=== PATIENT | female | born 1995 | race American Indian/Alaskan Native ===

== ENCOUNTER 2018-12-23 20:08 | Outpatient (CLI) | payer MEDICAID ==
[2018-12-23 20:44] VITALS: BP 109/67
--- NOTE | 2018-12-23 22:38 | Ultrasound Report ---
FINAL REPORT PROCEDURE: US OB LIMITED TECHNIQUE: Real-time limited sonographic examination was performed for evaluation of amniotic fluid volume for each fetus with image documentation (1 or more fetuses). CPT 71486 HISTORY: EMILIE COMPARISON: No prior studies are available for comparison. FINDINGS: A single intrauterine gestation is identified with heart rate of 144 beats per minute. Amniotic fluid index is 10.4 centimeters which is within normal limits. IMPRESSION: Amniotic fluid index is 10.4 centimeters
[2018-12-24 00:13] LABS: Bacteria,Urine 4+ /HPF (Negative); Bilirubin,Urine NEG (Negative); Blood,Urine NEG (Negative); Color,Urine Yellow (Yellow); Mucus,Urine FEW /HPF; Urobilinogen,Urine < 2.0 mg/dL (<2.0)
== END 2018-12-23 22:40 | disposition home or self-care (01) ==
LOC: TRG 20:08
PROVIDERS: ATTEND Obstetrics & Gynecology
DX: O88.113 Amniotic fluid embolism in pregnancy, third trimester (principal); O99.513 Diseases of the respiratory system complicating pregnancy, third trimester; J45.909 Unspecified asthma, uncomplicated; Z3A.36 36 weeks gestation of pregnancy
CPT/HCPCS: 76815; 81001

== ENCOUNTER 2019-01-09 11:38 | Outpatient (CLI) | payer MEDICAID | END 2019-01-09 14:28 | disposition home or self-care (01) | LOC: TRG 11:38 | CPT/HCPCS: 59025 ==

== ENCOUNTER 2019-01-09 22:52 | Inpatient (IN) | payer MEDICAID ==
[2019-01-10] MEDS ORDERED: AMPICILLIN/NS 2 GM/100 ML 2 GM/100 ML BAG IV ONE (00:33)
[2019-01-10] MEDS ORDERED: SUBLIMAZE IV PRN (00:33)
[2019-01-10] MEDS ORDERED: MINERAL OIL PO PRN (00:33)
[2019-01-10] MEDS ORDERED: XYLOCAINE 2% INFILTRATI ONE ×2 (00:33→04:05)
[2019-01-10] MEDS ORDERED: BRETHINE IVP PRN (00:33)
[2019-01-10] MEDS ORDERED: BRETHINE SUB-Q PRN (00:33)
[2019-01-10] MEDS ORDERED: LACTATED RINGERS 1,000 ML IV SCH (01:00)
[2019-01-10] MEDS ORDERED: PITOCin/NS 20 UNIT/1000ML DRIP 20 UNITS/1,000 ML BAG IV SCH ×2 (01:00→05:00)
[2019-01-10] MEDS ORDERED: ZOFRAN IV ONE (01:08)
[2019-01-10 01:18] LABS: Hematocrit 36.7 % (30.3-42.9); Hemoglobin 12.5 gm/dl (10.1-14.3); Mean Corpuscular HGB Conc 34 % (30-34); Mean Corpuscular Volume 99 fl (79-97); Platelet Count 215 K/mm3 (140-440); Red Blood Count 3.69 M/mm3 (3.65-5.03); Red Cell Distribution Width 14.2 % (13.2-15.2)
[2019-01-10] MEDS ORDERED: PITOCin/NS 30 UNIT/500ML 30,000 MILLIUNITS/500 ML BAG IV ONE (03:27)
--- NOTE | 2019-01-10 04:31 | History and Physical Report ---
History of Present Illness Date of examination: 01/10/19 Date of admission: 01/10/19 01:51 Chief complaint: contractions History of present illness: This is a 23 yo at 38 weeks here for contractions noted to be 7cm. She is a patient of [facility]. Unremarkable hospital course Past History Past Medical History: no pertinent history Past Surgical History: no surgical history Family/Genetic History: none Social history: single. denies: smoking, alcohol abuse, prescription drug abuse - Obstetrical History Expected Date of Delivery: 01/20/19 Actual Gestation: 38 Week(s) 4 Day(s) : 1 Para: 0 Hx # Term Pregnancies: 0 Number of Pregnancies: 0 Spontaneous Abortions: 0 Induced : 0 Number of Living Children: 0 Medications and Allergies Allergies Allergy/AdvReac Type Severity Reaction Status Date / Time Latex, Natural Rubber AdvReac Severe Itching Verified 01/09/19 11:57 Active Meds: Active Medications Ephedrine Sulfate (Ephedrine Sulfate) 10 mg IV Q2M PRN PRN Reason: Hypotension Fentanyl (Sublimaze) 100 mcg IV Q2H PRN PRN Reason: Labor Pain Last Admin: 01/10/19 01:00 Dose: 100 mcg Documented by: Ampicillin Sodium (Ampicillin/Ns 1 Gm/50 Ml) 1 gm in 50 mls @ 100 mls/hr IV Q4HR PAIGE; Protocol Lactated Ringer's (Lactated Ringers) 1,000 mls @ 125 mls/hr IV DIRECT PAIGE Last Admin: 01/10/19 01:00 Dose: 125 mls/hr Documented by: Oxytocin/Sodium Chloride (Pitocin/Ns 20 Unit/1000ml Drip) 20 units in 1,000 mls @ 125 mls/hr IV DIRECT PAIGE Mineral Oil (Mineral Oil) 30 ml PO QHS PRN PRN Reason: Constipation Terbutaline Sulfate (Brethine) 0.25 mg SUB-Q ONCE PRN PRN Reason: Hyperstimulation/Hypertonicity Terbutaline Sulfate (Brethine) 0.25 mg IVP ONCE PRN PRN Reason: Hyperstimulation/Hypertonicity Review of Systems All systems: negative Genitourinary: contractions - Vital Signs Vital signs: Vital Signs Pulse BP 82 125/84 01/09/19 23:58 01/09/19 23:58 Temp Pulse Resp BP Pulse Ox 98.5 F 92 H 113/62 01/10/19 00:24 01/10/19 04:18 01/10/19 04:18 - Physical Exam Breasts: Positive: normal Cardiovascular: Regular rate, Normal S1 Lungs: Positive: Clear to auscultation, Normal air movement Abdomen: Positive: normal appearance, soft, normal bowel sounds. Negative: distention, tenderness, guarding Genitourinary (Female): Positive: normal external genitalia, normal perenium Uterus: Positive: normal size, normal contour Anus/Rectum: Positive: normal perianal skin Extremities: Positive: normal Deep Tendon Reflex Grade: Normal +2 - Obstetrical FHR: category 1 Cervical Dilatation: 8 Cervical Effacement Percentage: 90 station: -3 Uterine Contraction Pattern: Regular Uterine Tone Measurement Phase: Contraction Uterine Contraction Intensity: Strong/Firm Results Result Diagrams: 01/10/19 00:55 Abnormal lab results 01/10/19 Range/Units 00:55 MCV 99 H (79-97) fl MCH 34 H (28-32) pg All other labs normal. Assessment and Plan A/P IUP 38 weeks Active labor GBS unknown - amp intiated IV pain meds expect vaginal delivery
[2019-01-10] MEDS ORDERED: AMPICILLIN/NS 1 GM/50 ML 1 GM/50 ML BAG IV SCH (04:33)
--- NOTE | 2019-01-10 04:38 | Procedure Note ---
OB Delivery Note - Delivery Date of Delivery: 01/10/19 Surgeon: PARAS COSTA Estimated blood loss: 300cc - Vaginal Delivery presentation: vertex Delivery position: OA Delivery augmentation: pitocin Delivery monitor: external FHT, external uterine Route of delivery: Delivery placenta: spontaneous Delivery cord: nuchal cord, 3 umbilical vessels Episiotomy: none Delivery laceration: other (Bilateral periurethral) Anesthesia: local Delivery comments: Patient noted to be c/c +2 and commenced top pushing a viable male infant at 0355 . The baby delivered head and shoulders easily. Prior to delivery of head a losse nuchal cord reduced. The naosphaynx and oropharynx suctioned. The cord was clamped and cut and placed on mom chest. The placenta delivered at 0401 intact. Survey of perineum revealed b/l periurethral lacs repaired with 3-0 vicryl. Excellent hemostasis. Mom and baby bonding. EBL 300 cc. - Infant A at 1 minute: 8 at 5 minutes: 9 Gender: Male (7 pounds 11 oz)
[2019-01-10] MEDS ORDERED: PHENERGAN PO PRN (04:55)
[2019-01-10] MEDS ORDERED: TORADOL IV PRN (04:55)
[2019-01-10] MEDS ORDERED: NORCO 5/325 PO PRN (04:55)
[2019-01-10] MEDS ORDERED: DULCOLAX PR PRN (04:55)
[2019-01-10] MEDS ORDERED: PHENERGAN PR PRN (04:55)
[2019-01-10] MEDS ORDERED: ZOFRAN IV PRN (04:55)
[2019-01-10] MEDS ORDERED: BENADRYL PO PRN (04:55)
[2019-01-10] MEDS ORDERED: MILK OF MAGNESIA PO PRN (04:55)
[2019-01-10] MEDS ORDERED: TYLENOL PO PRN (04:55)
[2019-01-10] MEDS ORDERED: SODIUM CHLORIDE FLUSH SYRINGE 10 ML IV PRN (05:00)
[2019-01-10] MEDS: TUCKS PAD TP PRN (06:26)
[2019-01-10] MEDS ORDERED: PRENATAL VITAMIN PO SCH (10:00)
[2019-01-10 18:44] LABS: Hematocrit 32.9 % (30.3-42.9); Hemoglobin 11.1 gm/dl (10.1-14.3)
[2019-01-10] MEDS: IBUPROFEN PO SCH (21:12)
[2019-01-10] MEDS: PERCOCET 5/325 PO PRN (21:12)
[2019-01-10] MEDS: COLACE PO SCH (21:45)
[2019-01-10] MEDS: SENOKOT S PO SCH (21:45)
[2019-01-11] MEDS: IBUPROFEN PO SCH ×4 (00:29→18:52)
[2019-01-11] MEDS ORDERED: M-M-R II VACCINE SUB-Q ONE (04:55)
[2019-01-11] MEDS ORDERED: BOOSTRIX IM ONE (06:00)
[2019-01-11] MEDS: COLACE PO SCH ×2 (09:01→22:00)
[2019-01-11] MEDS: TUCKS PAD TP PRN (09:03)
[2019-01-11] MEDS: PERCOCET 5/325 PO PRN (09:06)
--- NOTE | 2019-01-11 12:12 | Progress Note ---
Assessment and Plan - Patient Problems (1) Vaginal delivery Current Visit: Yes Status: Acute Plan to address problem: patient doing well discharge home tomorrow Subjective - Subjective Date of service: 01/11/19 Interval history: Patient doing well. Tolerating regular diet. Patient reports: appetite normal, voiding normally, pain well controlled Nora: doing well Objective - Vital Signs Latest vital signs: Vital Signs Temp Pulse Resp BP BP Pulse Ox 01/11/19 09:06 20 01/11/19 01:49 98.7 F 74 18 105/65 01/10/19 20:00 98.6 F 77 16 111/78 01/10/19 18:24 97.8 F 77 24 110/69 97 01/10/19 12:53 98.3 F 108 H 20 113/68 96 - Exam Abdomen: Present: normal appearance Uterus: Present: normal, firm
--- NOTE | 2019-01-11 12:14 | Discharge Summary ---
Providers - Providers Date of Admission: 01/10/19 01:51 Date of discharge: 01/12/19 Attending physician: PARAS COSTA MD Primary care physician: PARAS COSTA MD Hospitalization Reason for admission: active labor Delivery: Discharge diagnosis: IUP at term delivered Hospital course: Patient admitted in active labor. Had a . unremarkable. Condition at discharge: Good Disposition: DC-01 TO HOME OR SELFCARE - Discharge Diagnoses (1) Vaginal delivery Status: Acute Plan - Discharge Medications Prescriptions: Ferrous Sulfate 325 mg PO BID #60 tablet. Ibuprofen [Motrin] 600 mg PO Q8H PRN #30 tablet PRN Reason: Pain oxyCODONE /ACETAMINOPHEN [Percocet 5/325] 1 tab PO Q6HR PRN #20 tablet PRN Reason: Pain - Provider Discharge Summary Activity: no sex for 6 weeks, no heavy lifting 4 weeks, no strenuous exercise Diet: routine Instructions: routine Additional instructions: [] Smoking cessation referral if applicable(refer to patient education folder for contact #) [] Refer to [facility] Booklet Call your doctor immediately for: * Fever > 100.5 * Heavy vaginal bleeding ( >1 pad per hour) * Severe persistent headache * Shortness of breath * Reddened, hot, painful area to leg or breast * schedule visit in 4 weeks - Follow up plan
[2019-01-11] MEDS: SENOKOT S PO SCH (22:00)
[2019-01-12] MEDS: LANSINOH TP PRN ×2 (00:55→14:45)
[2019-01-12] MEDS: IBUPROFEN PO SCH ×2 (00:56→06:31)
[2019-01-12 09:13] VITALS: BP 115/76
== END 2019-01-12 16:04 | disposition home or self-care (01) | DRG 775 ==
LOC: TRG 22:52 → LD 01-10 01:51 → OB 01-10 06:22
PROVIDERS: ADMIT Obstetrics & Gynecology; ATTEND Obstetrics & Gynecology
PROC: 10E0XZZ Delivery of Products of Conception, External Approach (ICD-10-PCS; principal; 2019-01-10)
PROC: 0UQMXZZ Repair Vulva, External Approach (ICD-10-PCS; 2019-01-10)
PROC: 3E0234Z Introduction of Serum, Toxoid and Vaccine into Muscle, Percutaneous Approach (ICD-10-PCS; 2019-01-11)
DX: O99.52 Diseases of the respiratory system complicating childbirth (principal); Z3A.38 38 weeks gestation of pregnancy; Z37.0 Single live birth; J45.909 Unspecified asthma, uncomplicated; O69.81X0 Labor and delivery complicated by cord around neck, without compression, not applicable or unspecified; O71.82 Other specified trauma to perineum and vulva; Z23 Encounter for immunization
CPT/HCPCS: 36415; 59025; 85014; 85018; 85027; 86592; 86850; 86900; 86901; G0378; A6250; J0290; J2405; J2590; J3010; J7120; Q0169